=== PATIENT | female | born 1985 | race Caucasian/White ===

== ENCOUNTER 2020-05-31 19:43 | Emergency (ER) | payer OTHER ==
[2020-05-31] MEDS ORDERED: ONDANSETRON 4 MG/2 ML VIAL ONE (20:14)
[2020-05-31] MEDS ORDERED: NA CHLORIDE 0.9% 1,000 ML ONE (20:14)
[2020-05-31] MEDS ORDERED: FAMOTIDINE 20 MG/2 ML VIAL IV ONE (20:14)
[2020-05-31] MEDS ORDERED: MORPHINE 2 MG/ML SYR ONE ×2 (20:22→21:39)
[2020-05-31 20:43] LABS: Absolute Lymphocytes (CBC) 4.2 K/uL (0.7-4.9); Basophils % 1.8 % (0-1.3); Hematocrit 41.6 % (36.0-45.0); Lymphocytes % 29.5 % (15.3-44.8); MPV 8.4 fL (7.6-11.3); RBC Red Blood Cell Count 5.17 M/uL (3.86-4.86)
[2020-05-31 20:54] LABS: ALT/SGPT 26 U/L (12-78); AST/SGOT 18 U/L (15-37); Albumin 3.6 g/dL (3.4-5.0); Alkaline Phosphatase 88 U/L (45-117); BUN Blood Urea Nitrogen 13 mg/dL (7-18); Bicarbonate 24 mmol/L (21-32); Bilirubin Direct < 0.1 mg/dL (0-0.2); Bilirubin Total 0.3 mg/dL (0.2-1.0); Blood Morphology Comment NOT SEEN (NOT SEEN); Glucose Level 93 mg/dL (74-106); Lipase 151 U/L (73-393); Platelet Estimate INCR; Potassium 3.5 mmol/L (3.5-5.1); Protein, Total 8.4 g/dL (6.4-8.2); Sodium Level 145 mmol/L (136-145); Urine White Blood Cell Casts OK
--- NOTE | 2020-05-31 21:28 | RAD REPORT ---
EXAM DESCRIPTION: US - Abdomen Exam Limited - 05/31/2020 9:13 pm CLINICAL HISTORY: Abdominal pain. COMPARISON: December 2019 FINDINGS: Gallstones. The gallbladder wall is normal thickness The biliary tree is normal caliber. IMPRESSION: Cholelithiasis without evidence of cholecystitis
[2020-05-31 21:30] LABS: Urine Blood NEGATIVE (NEG); Urine Glucose NEGATIVE (NEG); Urine Protein NEGATIVE (NEG); Urine Specific Gravity 1.015 (1.005-1.030)
[2020-05-31] MEDS ORDERED: KETOROLAC 30 MG/ML INJ ONE (22:33)
--- NOTE | 2020-05-31 23:13 | EDPHYS ---
Physician Documentation [facility] Name: Mary Gillette Age: 34 yrs Sex: Female : 1985 Arrival Date: 05/31/2020 Time: 19:46 Bed 13 Private MD: ED Physician Donato Busby HPI: 05/31 20:05 This 34 yrs old Female presents to ER via Ambulatory with complaints of Back cp Pain, Nausea and Vomiting. 20:05 The patient presents with pain that is acute, with no known mechanism of injury. The cp symptoms are located in the mid back area. Onset: The symptoms/episode began/occurred 1 hour(s) ago. Associated signs and symptoms: Pertinent positives: abdominal pain, nausea, vomiting, Pertinent negatives: constipation, dysuria, fever, diarrhea. 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 - Social history:: Smoking status: Patient denies any tobacco usage or history of. Patient uses alcohol, only on a social basis. Patient/guardian denies using street drugs. ROS: 20:10 Back: Positive for pain at rest, pain with movement, of the mid back area. cp 20:10 Eyes: Negative for injury, pain, redness, and discharge. cp 20:10 Constitutional: Negative for body aches, chills, fever. 20:10 Respiratory: Negative for cough, shortness of breath, wheezing. 20:10 Abdomen/GI: Positive for abdominal pain, nausea and vomiting, Negative for diarrhea, constipation, hematemesis. 20:10 : Negative for urinary symptoms. 20:10 Neuro: Negative for altered mental status, headache, weakness. 20:10 All other systems are negative. Exam: 20:15 Constitutional: The patient appears in no acute distress, alert, awake, non-toxic, well cp developed, well nourished. 20:15 Head/Face: Normocephalic, atraumatic. cp 20:15 Eyes: Periorbital structures: appear normal, Conjunctiva: normal, no exudate, no injection, Sclera: no appreciated abnormality, Lids and lashes: appear normal, bilaterally. 20:15 ENT: External ear(s): are unremarkable, Nose: is normal, Mouth: Lips: moist, Oral mucosa: moist, Posterior pharynx: Airway: no evidence of obstruction, patent. 20:15 Chest/axilla: Inspection: normal, Palpation: is normal, no crepitus, no tenderness. 20:15 Cardiovascular: Rate: tachycardic, Rhythm: regular. 20:15 Respiratory: the patient does not display signs of respiratory distress, Respirations: normal, no use of accessory muscles, labored breathing, is not present, Breath sounds: are clear throughout, no decreased breath sounds, no stridor, no wheezing. 20:15 Abdomen/GI: Inspection: abdomen appears normal, Bowel sounds: active, all quadrants, Palpation: soft, in all quadrants, mild abdominal tenderness, in the right upper quadrant and left upper quadrant, voluntary guarding, is not appreciated, involuntary guarding, is not appreciated. 20:15 Back: pain, that is moderate, of the mid back area, ROM is normal. 20:15 Neuro: Orientation: to person, place \T\ time. Mentation: is normal, Motor: moves all fours, strength is normal. Vital Signs: 19:50 BP 158 / 100; Pulse 100; Resp 18; Temp 97.3; Pulse Ox 98% ; Pain 10/10; ll1 21:15 BP 135 / 93; Pulse 76; Resp 18; Pulse Ox 97% on R/A; Pain 5/10; wh 22:30 BP 142 / 97; Pulse 71; Resp 18; Pulse Ox 100% on R/A; Pain 4/10; wh 23:33 BP 136 / 92; Pulse 73; Resp 18 S; Pulse Ox 100% on R/A; bb MDM: 20:03 Patient medically screened. cp 23:10 Data reviewed: vital signs, nurses notes, lab test result(s), radiologic studies, CT cp scan, ultrasound, I have discussed the patient's presentation/case with the attending Emergency Department Physician; and as a result, I will discharge patient. 05/31 20:01 Order name: Basic Metabolic Panel; Complete Time: 20:54 cp 05/31 23:06 Interpretation: Normal except: CL 113; GFR 73. cp 05/31 20:01 Order name: CBC with Diff; Complete Time: 21:31 cp 05/31 20:54 Interpretation: Normal except: WBC 14.1; RBC 5.17; MCH 26.7; PLT 449; BASO% 1.8; NEUT A cp 8.5. 05/31 20:01 Order name: Hepatic Function; Complete Time: 20:54 cp 05/31 20:54 Interpretation: Normal except: TP 8.4; GLOB 4.8; A/G 0.8. cp 05/31 20:01 Order name: Lipase; Complete Time: 20:54 cp 05/31 20:55 Order name: CBC Smear Scan; Complete Time: 21:31 EDMS 05/31 21:15 Order name: Urine --Ancillary (enter results); Complete Time: 21:31 tt3 05/31 20:01 Order name: US Abdomen Limited: RUQ/epigastric area; Complete Time: 21:31 cp 05/31 21:31 Interpretation: Report reviewed. cp 05/31 20:55 Order name: CT Abd/Pelvis - IV Contrast Only cp 05/31 21:15 Order name: Urine Dipstick--Ancillary (enter results); Complete Time: 21:31 tt3 05/31 21:31 Interpretation: Normal except: UESTR TRACE. cp 05/31 20:01 Order name: IV Saline Lock; Complete Time: 20:08 cp 05/31 20:01 Order name: Labs collected and sent; Complete Time: 20:08 cp 05/31 20:01 Order name: Urine Dipstick-Ancillary (obtain specimen); Complete Time: 21:13 cp 05/31 20:01 Order name: Urine Test (obtain specimen); Complete Time: 21:13 cp 05/31 23:06 Order name: PO challenge; Complete Time: 23:19 cp Administered Medications: 20:04 Drug: NS 0.9% 1000 ml Route: IV; Rate: 1 bolus; Site: left forearm; 21:13 Follow up: Response: No adverse reaction; IV Status: Completed infusion 20:06 Drug: Pepcid 20 mg Route: IVP; Site: left forearm; wh 21:14 Follow up: Response: No adverse reaction 20:08 Drug: Zofran (Ondansetron) 4 mg Route: IVP; Site: left forearm; 21:14 Follow up: Response: No adverse reaction; Nausea is decreased 20:14 Drug: morphine 2 mg {Note: RASS 0.} Route: IVP; Site: left forearm; 21:14 Follow up: Response: No adverse reaction; Pain is decreased; RASS: Alert and Calm (0) 21:36 Drug: morphine 2 mg {Note: RASS 0.} Route: IVP; Site: left forearm; wh 22:51 Follow up: Response: No adverse reaction; Pain is decreased; RASS: Alert and Calm (0) 22:26 Drug: TORadol - Ketorolac 15 mg Route: IVP; Site: left forearm; 23:20 Follow up: Response: No adverse reaction jd3 Disposition: 06/01 07:21 Co-signature as Attending Physician, Donato Busby MD. 7 Disposition: 05/31/20 23:13 Discharged to Home. Impression: Cholelithiasis, Nausea and vomiting. - Condition is Stable. - Discharge Instructions: Biliary Colic, Adult, Nausea and Vomiting, Adult, Cholelithiasis. - Prescriptions for Bentyl 20 mg Oral Tablet - take 1 tablet by ORAL route every 6 hours As needed; 30 tablet. Zofran 4 mg Oral Tablet - take 1 tablet by ORAL route every 12 hours As needed; 20 tablet. - Medication Reconciliation Form, Thank You Letter, Antibiotic Education, Prescription Opioid Use form. - Follow up: Palmer Almonte MD; When: 2 - 3 days; Reason: gallstones. - Problem is new. - Symptoms have improved. Signatures: Dispatcher [employer] EDMS Raza Garcia PA PA cp Habalo, Winsy wh Davies, Jonathon, RN RN jd3 Robson Ortiz RN RN ll1 Donato Busby MD MD 7 Corrections: (The following items were deleted from the chart) 05/31 23:41 23:13 05/31/2020 23:13 Discharged to Home. Impression: Cholelithiasis; Nausea and jd3 vomiting. Condition is Stable. Forms are Medication Reconciliation Form, Thank You Letter, Antibiotic Education, Prescription Opioid Use. Follow up: Palmer Almonte; When: 2 - 3 days; Reason: gallstones. Problem is new. Symptoms have improved. cp 06/01 06:05 05/31 20:05 Onset: The symptoms/episode began/occurred 2 hour(s) ago, marleen hawley
--- NOTE | 2020-05-31 23:13 | ER ---
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 States she has ll1 been having ongoing abdominal issues since July. Had colonoscopy today. Coronavirus screen: Client denies travel out of the [place] in the last 14 days. At this time, the client does not indicate any symptoms associated with coronavirus-19. Ebola Screen: Patient denies travel to an Ebola-affected area in the 21 days before illness onset. Initial Sepsis Screen: Does the patient meet any 2 criteria? HR > 90 bpm. Risk Assessment: Do you want to hurt yourself or someone else? Patient reports no desire to harm self or others. Onset of symptoms was May 31, 2020. 19:50 Method Of Arrival: Ambulatory [facility] 19:50 Acuity: NISHA 3 ll1 20:32 Initial Sepsis Screen: Does the patient have a suspected source of infection? Yes: wh Acute abdominal pain. 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 - Social history:: Smoking status: Patient denies any tobacco usage or history of. Patient uses alcohol, only on a social basis. Patient/guardian denies using street drugs. Screenin:09 Abuse screen: Denies threats or abuse. Denies injuries from another. Nutritional wh screening: No deficits noted. Tuberculosis screening: No symptoms or risk factors identified. Fall Risk None identified. Assessment: 20:10 General: Appears uncomfortable, Behavior is cooperative, appropriate for age. Pain: wh Complains of pain in back Pain radiates to epigastric area and right upper quadrant Pain currently is 9 out of 10 on a pain scale. Quality of pain is described as stinging, Pain began 1 hour ago. Is intermittent. Neuro: Level of Consciousness is awake, alert, obeys commands, Oriented to person, place, time, situation, Appropriate for age. Cardiovascular: Heart tones S1 S2. Respiratory: Airway is patent Respiratory effort is even, unlabored, Respiratory pattern is regular, symmetrical, Breath sounds are clear bilaterally. GI: Abdomen is round non-distended, Abd is soft Reports upper abdominal pain, nausea, vomiting. : No signs and/or symptoms were reported regarding the genitourinary system. EENT: No signs and/or symptoms were reported regarding the EENT system. Derm: Skin is intact, is healthy with good turgor, Skin is pink, warm \T\ dry. normal. Musculoskeletal: Circulation, motion, and sensation intact. 21:20 Reassessment: No changes from previously documented assessment. Patient and/or family wh updated on plan of care and expected duration. Pain level reassessed. Patient is alert, oriented x 3, equal unlabored respirations, skin warm/dry/pink. 22:37 Reassessment: Patient and/or family updated on plan of care and expected duration. Pain wh level reassessed. Patient is alert, oriented x 3, equal unlabored respirations, skin warm/dry/pink. 23:33 Reassessment: Patient appears in no apparent distress at this time. Patient and/or bb family updated on plan of care and expected duration. Pain level reassessed. Patient is alert, oriented x 3, equal unlabored respirations, skin warm/dry/pink. Patient states feeling better. Vital Signs: 19:50 BP 158 / 100; Pulse 100; Resp 18; Temp 97.3; Pulse Ox 98% ; Pain 10/10; ll1 21:15 BP 135 / 93; Pulse 76; Resp 18; Pulse Ox 97% on R/A; Pain 5/10; wh 22:30 BP 142 / 97; Pulse 71; Resp 18; Pulse Ox 100% on R/A; Pain 4/10; wh 23:33 BP 136 / 92; Pulse 73; Resp 18 S; Pulse Ox 100% on R/A; bb ED Course: 19:46 Patient arrived in ED. bp1 19:51 Donato Busby MD is Attending Physician. mh7 19:53 Triage completed. ll1 19:53 Arm band placed on Patient placed in an exam room, on a stretcher. ll1 19:56 Raza Garcia PA is PHCP. cp 20:02 Habalo, Winsy is Primary Nurse. wh 20:30 Inserted saline lock: 20 gauge in left forearm, using aseptic technique. Blood wh collected. By Ismael Navarrete RN. 21:00 Patient has correct armband on for positive identification. Placed in gown. Bed in low wh position. Call light in reach. Side rails up X 1. Pulse ox on. NIBP on. 21:08 Radiology exam delayed due to test not completed at this time. vm2 21:14 US Abdomen Limited: RUQ/epigastric area In Process Unspecified. EDMS 21:50 CT Abd/Pelvis - IV Contrast Only In Process Unspecified. EDMS 23:12 Palmer Almonte MD is Referral Physician. cp 23:33 No provider procedures requiring assistance completed. IV discontinued, intact, bb bleeding controlled, No redness/swelling at site. Pressure dressing applied. Administered Medications: 20:04 Drug: NS 0.9% 1000 ml Route: IV; Rate: 1 bolus; Site: left forearm; 21:13 Follow up: Response: No adverse reaction; IV Status: Completed infusion 20:06 Drug: Pepcid 20 mg Route: IVP; Site: left forearm; wh 21:14 Follow up: Response: No adverse reaction 20:08 Drug: Zofran (Ondansetron) 4 mg Route: IVP; Site: left forearm; wh 21:14 Follow up: Response: No adverse reaction; Nausea is decreased wh 20:14 Drug: morphine 2 mg {Note: RASS 0.} Route: IVP; Site: left forearm; 21:14 Follow up: Response: No adverse reaction; Pain is decreased; RASS: Alert and Calm (0) 21:36 Drug: morphine 2 mg {Note: RASS 0.} Route: IVP; Site: left forearm; wh 22:51 Follow up: Response: No adverse reaction; Pain is decreased; RASS: Alert and Calm (0) 22:26 Drug: TORadol - Ketorolac 15 mg Route: IVP; Site: left forearm; 23:20 Follow up: Response: No adverse reaction jd3 Outcome: 23:13 Discharge ordered by . cp 23:33 Condition: stable bb 23:33 Discharge instructions given to patient, Instructed on discharge instructions, follow up and referral plans. medication usage, Demonstrated understanding of instructions, follow-up care, medications, Prescriptions given X 2. 23:41 Discharged to home ambulatory, with family. jd3 23:41 Patient left the ED. jd3 Signatures: Dispatcher [employer] EDSimin Foster RN RN Raza Pennington PA PA cp McGuire, Victoria 2 Chip, Iva Butler, SHIELA Horton RN jd3 Robson Ortiz RN RN ll1 Gayatri Medina Maurice, MD MD mh7 Corrections: (The following items were deleted from the chart) 22:48 22:30 BP 142 / 97; Pulse 71bpm; Resp 18bpm; Pulse Ox 100% RA; [facility] 22:48 21:15 BP 135 / 93; Pulse 76bpm; Resp 18bpm; Pulse Ox 97% RA; [facility]
--- NOTE | 2020-06-01 14:48 | RAD REPORT ---
EXAM DESCRIPTION: CT - Abdomen Pelvis W Contrast - 06/01/2020 5:12 am CLINICAL HISTORY: The patient is 34 years old and is Female; NAUSEA / VOMITING TECHNIQUE: Axial computed tomography images of the abdomen and pelvis with intravenous contrast. S agittal and coronal reformatted images were created and reviewed. This CT exam was performed using one or more of the following dose reduction techniques: automated exposure control, adjustment of t he mA and/or kV according to patient size, and/or use of iterative reconstruction technique. DLP: 1277 mGy*cm COMPARISON: None. FINDINGS: LUNG BASES: Lung bases are clear. HEART: Visualized heart is normal. ABDOMEN: LIVER: Mild hepatic steatosis. GALLBLADDER AND BILE DUCTS: Suggestion of cholelithiasis without CT evidence of acute cholecystiti s. No ductal dilation. PANCREAS: Unremarkable. No mass. No ductal dilation. SPLEEN: Multifocal splenic rounded hypodensities measuring up to 4.1 x 3.2 cm. ADRENALS: Unremarkable. No mass. KIDNEYS AND URETERS: Unremarkable. No solid mass. No hydronephrosis. STOMACH AND BOWEL: Linear metallic foreign body in the descending colon (series 401, image 44). No obstruction. No mucosal thickening. PELVIS: APPENDIX: The appendix is seen and is within normal limits. BLADDER: Bladder is decompressed. REPRODUCTIVE: Unremarkable as visualized. ABDOMEN and PELVIS: INTRAPERITONEAL SPACE: Unremarkable. No free air. No significant fluid collection. BONES/JOINTS: No acute fracture. No dislocation. SOFT TISSUES: Small fat-containing of vertical hernia. VASCULATURE: Unremarkable. No abdominal aortic aneurysm. LYMPH NODES: Unremarkable. No enlarged lymph nodes. IMPRESSION: 1. No acute abdominal or pelvic abnormality. 2. Linear metallic foreign body in the descending colon (series 401, image 44). 3. Suggestion of cholelithiasis without CT evidence of acute cholecystitis. Right upper quadrant ultrasound is recommended. 4. Mild hepatic steatosis. 5. Multifocal simple-appearing splenic cystic lesion measuring up to 4.1 cm with mild mural calcifi cation. Abdominal ultrasound is recommended. Electronically signed by: Severo Majano DO 05/31/2020 9:57 PM CDT Due to temporary technical issues with the PACS/Fluency reporting system, reports are being signed by the in house radiologist without review as a courtesy to ensure prompt reporting. The interpreting r adiologist is fully responsible for the content of the report.
== END 2020-05-31 23:41 | disposition home or self-care (01) ==
LOC: ER 19:43
DX: K80.20 Calculus of gallbladder without cholecystitis without obstruction (principal); Z88.0 Allergy status to penicillin; Z91.040 Latex allergy status; Z91.048 Other nonmedicinal substance allergy status
CPT/HCPCS: 96361; 85025; 80048; 36415; 81025; 80076; 81003; 83690; 74177; 76705; 96375; 96374; 99284; Q9967; J2270 ×2; J7030; J2405

== ENCOUNTER 2020-06-04 23:01 | Inpatient (IN) | payer OTHER ==
--- NOTE | 2020-06-04 23:31 | EDPHYS ---
Physician Documentation [facility] Name: Mary Gillette Age: 34 yrs Sex: Female : 1985 Arrival Date: 06/04/2020 Time: 23:02 Bed 16 Private MD: ED Physician Donato Busby HPI: 06/04 23:37 This 34 yrs old Female presents to ER via Ambulatory with complaints of kb gallbladder pain. 23:37 The patient presents with abdominal pain in the right upper quadrant. Onset: The kb symptoms/episode began/occurred today. The symptoms do not radiate. Associated signs and symptoms: none. The symptoms are described as intermittent. Modifying factors: The symptoms are alleviated by nothing, the symptoms are aggravated by nothing. Severity of pain: At its worst the pain was moderate in the emergency department the pain has resolved. The patient has experienced similar episodes in the past. The patient has been recently seen by a physician:. Pt reports she is scheduled for her gallbladder to be removed at [address] Almonte. States she has a little pain a few hours ago and was worried that she would have a full gallbladder attack so she came in to get ahead of it. States "now that I'm here I don't have any pain, but I wouldn't be able to take it if it came back." . 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 - Social history:: Smoking status: Patient denies any tobacco usage or history of. ROS: 23:36 Constitutional: Negative for fever, chills, and weight loss, Cardiovascular: Negative kb for chest pain, palpitations, and edema, Respiratory: Negative for shortness of breath, cough, wheezing, and pleuritic chest pain, Back: Negative for injury and pain, : Negative for injury, bleeding, discharge, and swelling, MS/Extremity: Negative for injury and deformity, Skin: Negative for injury, rash, and discoloration, Neuro: Negative for headache, weakness, numbness, tingling, and seizure. 23:36 Abdomen/GI: Positive for abdominal pain, Negative for nausea, vomiting, and diarrhea. Exam: 23:36 Constitutional: This is a well developed, well nourished patient who is awake, alert, kb and in no acute distress. Head/Face: Normocephalic, atraumatic. Chest/axilla: Normal chest wall appearance and motion. Nontender with no deformity. No lesions are appreciated. Cardiovascular: Regular rate and rhythm with a normal S1 and S2. No gallops, murmurs, or rubs. Normal PMI, no JVD. No pulse deficits. Respiratory: Lungs have equal breath sounds bilaterally, clear to auscultation and percussion. No rales, rhonchi or wheezes noted. No increased work of breathing, no retractions or nasal flaring. Abdomen/GI: Soft, non-tender, with normal bowel sounds. No distension or tympany. No guarding or rebound. No evidence of tenderness throughout. Skin: Warm, dry with normal turgor. Normal color with no rashes, no lesions, and no evidence of cellulitis. MS/ Extremity: Pulses equal, no cyanosis. Neurovascular intact. Full, normal range of motion. Neuro: Awake and alert, GCS 15, oriented to person, place, time, and situation. Cranial nerves II-XII grossly intact. Motor strength 5/5 in all extremities. Sensory grossly intact. Cerebellar exam normal. Normal gait. Vital Signs: 23:25 BP 132 / 91; Pulse 83; Resp 18; Temp 98(O); Pulse Ox 100% on R/A; Weight 92.99 kg (R); lp1 Height 5 ft. 3 in. (160.02 cm); Pain 3/10; 23:54 BP 116 / 93; Pulse 81; Resp 18; Pulse Ox 99% ; vc 06/05 00:33 BP 106 / 68; Pulse 74; Resp 16; Pulse Ox 99% on R/A; vc 06/04 23:25 Body Mass Index 36.31 (92.99 kg, 160.02 cm) lp1 MDM: 06/04 23:07 Patient medically screened. kb 23:29 Data reviewed: vital signs, nurses notes. Data interpreted: Pulse oximetry: on room air kb is 100 %. Interpretation: normal. Counseling: I had a detailed discussion with the patient and/or guardian regarding: the historical points, exam findings, and any diagnostic results supporting the discharge/admit diagnosis, the need for further work-up and treatment in the hospital. Physician consultation: Palmer Almonte MD was contacted at 23:29, regarding consult, patient's condition, and will see patient in inpatient room. 23:46 ED course: Dr Almonte recommended admission until scheduled procedure in the morning kb to manage pain. 06/04 23:07 Order name: Basic Metabolic Panel kb 06/04 23:07 Order name: CBC with Diff kb 06/04 23:07 Order name: Hepatic Function kb 06/04 23:07 Order name: Lipase kb 06/04 23:07 Order name: IV Saline Lock; Complete Time: 23:51 kb Administered Medications: 23:50 Drug: NS 0.9% 1000 ml Route: IV; Rate: 1000 ml; Site: left antecubital; vc 06/05 00:47 Follow up: IV Status: Infusion continued upon admission vc 06/04 23:50 Drug: Cipro 400 mg Volume: 200 ml; Route: IVPB; Infused Over: 60 mins; Site: left vc antecubital; 06/05 00:47 Follow up: IV Status: Completed infusion; IV Intake: 200ml vc 00:04 Drug: morphine 4 mg {Note: RASS 0.} Route: IVP; Site: left antecubital; vc 00:45 Follow up: Response: No adverse reaction; Pain is decreased vc 00:05 Drug: Zofran (Ondansetron) 4 mg Route: IVP; Site: left antecubital; vc 00:45 Follow up: Response: No adverse reaction vc Disposition: 01:27 Co-signature as Attending Physician, Donato Busby MD. mh7 Disposition: 06/04/20 23:31 Hospitalization ordered by Palmer Almonte for Observation. Preliminary diagnosis is Cholelithiasis. - Bed requested for Telemetry/MedSurg (observation). - Status is Observation. vc - Condition is Stable. - Problem is new. - Symptoms are unchanged. Signatures: Dispatcher [employer] EDMS Silvana Gonzalez, MILLER-C MILLER-Kezia Stout, RN RN lp1 Ann Fox, RN RN cg Viviana Hand RN RN vc Donato Busby MD MD mh7 Corrections: (The following items were deleted from the chart) 06/04 23:39 23:31 Hospitalization Ordered by Palmer Almonte MD for Observation. Preliminary cg diagnosis is Cholelithiasis. Bed requested for Telemetry/MedSurg (observation). Status is Observation. Condition is Stable. Problem is new. Symptoms are unchanged. kb 23:46 23:37 Pt reports she is scheduled for her gallbladder to be removed at 0900 tomorrow by marguerite Almonte. States . kb 23:51 23:07 Labs collected and sent ordered. marguerite vc 06/05 00:46 06/04 23:39 06/04/2020 23:31 Hospitalization Ordered by Palmer Almonte MD for vc Observation. Preliminary diagnosis is Cholelithiasis. Bed requested for Telemetry/MedSurg (observation). Status is Observation. Condition is Stable. Problem is new. Symptoms are unchanged. cg
--- NOTE | 2020-06-04 23:31 | ER ---
Nurse's Notes [facility] Name: Mary Gillette Age: 34 yrs Sex: Female : 1985 Arrival Date: 06/04/2020 Time: 23:02 Bed 16 Private MD: Diagnosis: Cholelithiasis Presentation: 06/04 23:25 Chief complaint: Patient states: Gallbladder pain, states episode began about 1800 lp1 tonight; Patient states scheduled to have lap renea tomorrow by Dr. Almonte at 0900. Coronavirus screen: Client denies travel out of the [place] in the last 14 days. At this time, the client does not indicate any symptoms associated with coronavirus-19. Ebola Screen: No symptoms or risks identified at this time. Initial Sepsis Screen: Does the patient meet any 2 criteria? No. Patient's initial sepsis screen is negative. Does the patient have a suspected source of infection? No. Patient's initial sepsis screen is negative. Risk Assessment: Do you want to hurt yourself or someone else? Patient reports no desire to harm self or others. Onset of symptoms was June 04, 2020 at 18:00. 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 - Social history:: Smoking status: Patient denies any tobacco usage or history of. Screenin:30 Abuse screen: Denies threats or abuse. Denies injuries from another. Nutritional lp1 screening: No deficits noted. Tuberculosis screening: No symptoms or risk factors identified. Fall Risk None identified. Assessment: 23:35 General: Appears in no apparent distress. comfortable, Behavior is calm, cooperative, vc appropriate for age. Pain: Complains of pain in epigastric area, right upper quadrant, left upper quadrant, right lower quadrant and left lower quadrant Pain does not radiate. Pain currently is 7 out of 10 on a pain scale. Quality of pain is described as sharp. Neuro: Level of Consciousness is awake, alert, obeys commands, Oriented to person, place, time, situation, Appropriate for age. Cardiovascular: Capillary refill < 3 seconds Patient's skin is warm and dry. Respiratory: Airway is patent Respiratory effort is even, unlabored, Respiratory pattern is regular, symmetrical. GI: Reports lower abdominal pain, upper abdominal pain. : No signs and/or symptoms were reported regarding the genitourinary system. Derm: Skin is intact, is healthy with good turgor, Skin temperature is warm. 06/05 00:33 Reassessment: Patient appears in no apparent distress at this time. Patient and/or vc family updated on plan of care and expected duration. Pain level reassessed. Patient is alert, oriented x 3, equal unlabored respirations, skin warm/dry/pink. Patient states feeling better. Patient states symptoms have improved. Vital Signs: 06/04 23:25 BP 132 / 91; Pulse 83; Resp 18; Temp 98(O); Pulse Ox 100% on R/A; Weight 92.99 kg (R); lp1 Height 5 ft. 3 in. (160.02 cm); Pain 3/10; 23:54 BP 116 / 93; Pulse 81; Resp 18; Pulse Ox 99% ; vc 06/05 00:33 BP 106 / 68; Pulse 74; Resp 16; Pulse Ox 99% on R/A; vc 06/04 23:25 Body Mass Index 36.31 (92.99 kg, 160.02 cm) lp1 ED Course: 06/04 23:02 Patient arrived in ED. am2 23:04 Silvana Gonzalez FNP-C [facility]. kb 23:04 Donato Busby MD is Attending Physician. kb 23:26 Viviana Hand, SHIELA is Primary Nurse. vc 23:27 Triage completed. lp1 23:27 Arm band placed on. lp1 23:30 Patient has correct armband on for positive identification. vc 23:31 Palmer Almonte MD is Hospitalizing Provider. kb 06/05 00:45 No provider procedures requiring assistance completed. Patient admitted, IV remains in vc place. Administered Medications: 06/04 23:50 Drug: NS 0.9% 1000 ml Route: IV; Rate: 1000 ml; Site: left antecubital; vc 06/05 00:47 Follow up: IV Status: Infusion continued upon admission vc 06/04 23:50 Drug: Cipro 400 mg Volume: 200 ml; Route: IVPB; Infused Over: 60 mins; Site: left vc antecubital; 06/05 00:47 Follow up: IV Status: Completed infusion; IV Intake: 200ml vc 00:04 Drug: morphine 4 mg {Note: RASS 0.} Route: IVP; Site: left antecubital; vc 00:45 Follow up: Response: No adverse reaction; Pain is decreased vc 00:05 Drug: Zofran (Ondansetron) 4 mg Route: IVP; Site: left antecubital; vc 00:45 Follow up: Response: No adverse reaction vc Intake: 00:47 IV: 200ml; Total: 200ml. vc Outcome: 06/04 23:31 Decision to Hospitalize by Provider. kb 06/05 00:46 Admitted to Med/surg accompanied by nurse, via wheelchair, room 206, with chart, Report vc called to SHIELA Shook Condition: good 00:46 Patient left the ED. vc Signatures: Silvana Gonzalez, FILTER MACHINE OPERATOR-C FILTER MACHINE OPERATOR-Ckb Kezia Ashley RN RN delonte1 Lolly Alberto Vanessa, RN RN vc
[2020-06-04] MEDS ORDERED: NA CHLORIDE 0.9% 1,000 ML ONE (23:49)
[2020-06-04] MEDS ORDERED: CIPROFLOXACIN 400mg IV 400 MG/200 ML BAG IV ONE (23:49)
[2020-06-05] MEDS ORDERED: ONDANSETRON 4 MG/2 ML VIAL ONE ×2 (00:08→11:02)
[2020-06-05] MEDS ORDERED: MORPHINE 4 MG/ML SYR ONE (00:08)
[2020-06-05] MEDS ORDERED: ONDANSETRON 4 MG/2 ML VIAL IV PRN (00:47)
[2020-06-05] MEDS: NA CHLORIDE 0.9% 1,000 ML IV SCH ×5 (00:47→20:21)
[2020-06-05] MEDS ORDERED: PIPER/TAZO/NS 3.375gm 3.375 GM/100 ML BAG IVPB SCH (01:00)
[2020-06-05 01:31] VITALS: BMI 35.6
[2020-06-05] MEDS: MORPHINE 4 MG/ML SYR IV PRN ×2 (04:51→23:06)
[2020-06-05] MEDS: CIPROFLOXACIN 400mg IV 400 MG/200 ML BAG IV SCH ×2 (08:27→20:20)
[2020-06-05 08:57] LABS: Absolute Lymphocytes (CBC) 3.1 K/uL (0.7-4.9); Basophils % 0.4 % (0-1.3); Hematocrit 37.3 % (36.0-45.0); Lymphocytes % 35.2 % (15.3-44.8); MPV 7.7 fL (7.6-11.3); RBC Red Blood Cell Count 4.62 M/uL (3.86-4.86)
[2020-06-05 09:15] LABS: Bilirubin Direct 0.1 mg/dL (0-0.2); Bilirubin Total 0.3 mg/dL (0.2-1.0); Potassium 3.9 mmol/L (3.5-5.1); Protein, Total 7.1 g/dL (6.4-8.2)
[2020-06-05] MEDS ORDERED: MIDAZOLAM HCL 2 MG/2 ML INJ ONE ×2 (10:22→10:32)
[2020-06-05] MEDS ORDERED: LIDOCAINE 1% MPF 5 ML VIAL ONE (10:32)
[2020-06-05] MEDS ORDERED: FENTANYL CITR 100 MCG/2 ML ONE ×2 (10:32→11:04)
[2020-06-05] MEDS ORDERED: propofoL 200 MG/20 ML VIAL IV ONE (10:32)
[2020-06-05] MEDS ORDERED: ROCURONIUM 50 MG/5 ML VIAL IV ONE (10:32)
[2020-06-05] MEDS ORDERED: dexAMETHasone 10 MG/ML VIAL ONE (10:55)
[2020-06-05] MEDS ORDERED: KETOROLAC 30 MG/ML INJ ONE (10:55)
[2020-06-05] MEDS ORDERED: NEOSTIGMINE 1 MG/ML -5 ML ONE (11:03)
[2020-06-05] MEDS ORDERED: GLYCOPYRROLATE 0.2 MG/ML SYR ONE (11:03)
--- NOTE | 2020-06-05 11:14 | P.BOP ---
Preoperative diagnosis: acute cholecystitis, sympt cholelithiasis, umbilical hernia, FB left colon Postoperative diagnosis: same Primary procedure: 1. Laparoscopic cholecystectomy Secondary procedure: 2. open repair of incarcerated umbilical hernia Allergy Specialist: Phylicia Del Toro) Estimated blood loss: <10cc Specimen: hernia sac, GB Anesthesia: General Complications: None Transferred to: Recovery Room Condition: Good
[2020-06-05] MEDS ORDERED: HYDROCODONE/APAP 5/325 MG TAB PO PRN (11:19)
[2020-06-05] MEDS ORDERED: Mastisol Adhesive Liq ONE (11:29)
--- NOTE | 2020-06-05 20:36 | HP ---
Date of Admission: 06/04/2020 History Of Present Illness: This is a case of a 30-year-old patient known by us seen today. She is supposed to have a cholecystectomy done due to acute cholecystitis and symptomatic cholelithiasis. O vernight, the pain got worse. So, she decided to come to the ER and then she was admitted to the [facility] for intractable abdominal pain, sometimes get better, sometimes get worse and she did not want to go home and come few hours later since she was still having pain. So, she was admitted to the [facility] and then continued with the plan of cholecystectomy. She states that happened after dinner and little bit just before dinner too. She denies any dysuria, hematuria, hematochezia, melena. Denies any recent traveling out of the country. Denies any family member sick at home. Medications: Reviewed. See my H and P right there in the chart at this moment for details. Allergies: PENICILLIN AND LATEX. Social History: She smokes occasionally. Drinks occasional alcohol. She was counseled on smoking c essation. Family History: Noncontributory. Surgical History: See my H and P. Including also meniscus repair. Physical Examination: General: The patient is awake, alert. HEENT: Pupils are equal and reactive. Anicteric. Neck: Supple. Chest: Clear. Abdomen: Epigastric right upper quadrant tenderness with Mills sign positive. Extremities: Good capillary refill. Rectal: Deferred. Breasts: Deferred. Pelvic: Deferred. Neuro: Oriented x3. Laboratory Data: Blood work shows WBC count of 8.7 with hemoglobin of 12.4. AST 79, ALT 86, total b ilirubin of 0.3, alkaline phosphatase of 160. Serum negative. Lipase 81. Ultrasound of t he abdomen shows cholelithiasis with biliary tree in the normal caliber. CAT scan of abdomen and pel vis shows some splenic lesion. She states [facility]. They sta te it is not a cancer, it is just a cyst. They are following up on that. They claim about a linear metallic area on the colon region, cannot tell exactly what that could be. The patient also has umbi lical hernia. Assessment: Acute cholecystitis, symptomatic cholelithiasis, umbilical hernia, also it could be a fo reign body in the area of the colon. We have different issues to deal also with the spleen, but some one is dealing with that already and the area of the gallbladder is to the point that she comes this morning with abdominal pain again, so this has to be addressed. The area of the foreign b shefali will have to be addressed if that continue with the help of a colonoscopy eventually once this ac luciano episode gets relief. Once again, benefits, alternatives, and risks including, but not limited to infection, bleeding, damage to adjacent structures, anesthesia complication, choledocholithiasis, bi le leak, pancreatitis, GA, and even . KRISTIN/RUY Voice ID: [id number]
--- NOTE | 2020-06-05 21:42 | OP ---
Date of Procedure: 06/05/2020 Surgeon: Palmer Almonte MD Preoperative Diagnoses: Abdominal pain right upper quadrant, acute cholecystitis, symptomatic cholel ithiasis, umbilical hernia, foreign body in the left colon. Postoperative Diagnoses: Abdominal pain right upper quadrant, acute cholecystitis, symptomatic renea lithiasis, umbilical hernia, foreign body in the left colon. Procedure: 1.Laparoscopic cholecystectomy. 2.Open repair of incarcerated umbilical hernia. Specimen: Hernia sac and gallbladder. Anesthesia: General plus local. History: This is a case of a 34-year-old patient with multiple problems. She has been seeing the GI doctor for abdominal pain, had a colonoscopy and endoscopy done recently. She also has a CT scan th at shows a little metallic area on the descending colon, but apparently the colonoscopy has not been able to find it, but then she comes with something different. She comes with epigastric right upper quadrant pain with Mills sign positive. She scheduled today for surgery. She could not wait until this morning. She has to come overnight to the ER due to epigastric pain and right upper quadrant pa in. Diagnosed with acute cholecystitis. She also has an incarcerated umbilical hernia, so laparosco pic possible cholecystectomy with umbilical hernia repair fully explained to the patient which includ e, but not limited to infection, bleeding, damage to adjacent structures, anesthesia complication, ch oledocholithiasis, bile leak, pancreatitis, recurrence, VT and even . She also understands this may not relieve any symptoms. She might need more than one surgical intervention. She understood, signed a consent. She was once again referred back to the GI doctor to trying to figure out the find ings on the CAT scan and descending colon. Although right now seems to be a separate incident. She has also seen her a oncologist for the splenic lesions, although they are not doing much about it and they do not think it is anything of concern. Description Of Procedure: The patient was brought to the operating room, placed in supine position. Anesthesia was done without complication. Abdominal area was prepped and draped in sterile fashion. Local anesthesia was applied followed by sharp incision of the skin in the periumbilical region. H ernia sac was opened. Omentum that was incarcerated there was released from adhesions and reduced ba ck into the abdominal cavity. Hernia sac was removed. The fascial edges were cleaned. We placed Vi cryl #1 inside the fascia. Anat trocar was carefully introduced. No bleeding was obtained. We pl aced 35 mm trocars 3 of them in the right upper quadrant epigastric area under direct visualization. This allowed me to visualize the area of the gallbladder. This gallbladder contrary of the ultrasou nd findings shows a thickening gallbladder with very distended gallbladder. So per the physical find ings of acute cholecystitis. We look at the area of the descending colon, although the camera was no t assigned for that area, but I do not see any inflammation of the descending colon and the reason we look at that area is because of the findings on the CAT scan. I do not see any extraluminal mass in that region. So, we concentrated in the area of the gallbladder once again. In order for me to man age this, I have to deflate the gallbladder with the endo needle under direct visualization. After t hat, I placed a grasper in the fundus of the gallbladder, another grasper in the infundibulum, retrac catia the gallbladder in the inferolateral fashion exposing the triangle of Calot and obtaining critica l view. The cystic duct and cystic artery were clearly isolated free circumferentially and connectio n between those and the gallbladder was clearly identified. I proceeded to ligate those by using at least 3 clips proximal, 1 clip distal, ligation in middle. Same was done with the cystic artery. No bile leak, no bleeding. The gallbladder was removed from liver using Bovie cauterizer and removed f rom abdominal cavity using EndoCatch through the umbilical incision. The area was inspected once aga in, no bile leak, no bleeding. Clips were intact. At that moment, I proceeded to remove the trocars under direct vision. Deflated the pneumoperitoneum. Closed the fascia with #1 Vicryl. Irrigated s ubcutaneous tissue, closed with 3-0 chromic and the skin with 3-0 chromic in a subcuticular fashion. Sponge count, instrument counts were correct. The patient tolerated the procedure well. The patient was sent to Recovery is in stab le condition. KRISTIN/MARLAL Voice ID: [id number] Report ID: [id number]
[2020-06-06] MEDS: NA CHLORIDE 0.9% 1,000 ML IV SCH ×2 (00:47→08:47)
[2020-06-06 07:50] VITALS: O2SAT 98
[2020-06-06] MEDS: CIPROFLOXACIN 400mg IV 400 MG/200 ML BAG IV SCH (08:14)
--- NOTE | 2020-06-06 12:03 | P.DS ---
Admission Date: 06/06/20 Discharge Date: 06/06/20 Disposition: ROUTINE DISCHARGE Discharge Condition: GOOD Vital Signs/Physical Exam: Temp Pulse Resp BP Pulse Ox 98.2 F 85 16 144/79 H 97 06/06/20 08:00 06/06/20 08:00 06/06/20 08:00 06/06/20 08:00 06/06/20 08:00 General: Alert, In no apparent distress, Oriented x3, Cooperative HEENT: PERRLA Neck: Supple Respiratory: Normal air movement Gastrointestinal: Soft and benign Musculoskeletal: No erythema, No tenderness, No warmth Integumentary: No rashes, No breakdown Neurological: Normal speech Laboratory Data at Discharge: WBC 8.7 K/uL (4.3-10.9) D 06/05/20 08:42 Hgb 12.4 g/dL (12.0-15.0) 06/05/20 08:42 Hct 37.3 % (36.0-45.0) 06/05/20 08:42 Plt Count 389 K/uL (152-406) 06/05/20 08:42 Sodium 142 mmol/L (136-145) 06/05/20 08:42 Potassium 3.9 mmol/L (3.5-5.1) 06/05/20 08:42 BUN 6 mg/dL (7-18) L 06/05/20 08:42 Creatinine 0.78 mg/dL (0.55-1.3) 06/05/20 08:42 Glucose 91 mg/dL (74-106) 06/05/20 08:42 Total Bilirubin 0.3 mg/dL (0.2-1.0) 06/05/20 08:42 AST 79 U/L (15-37) H 06/05/20 08:42 ALT 86 U/L (12-78) H 06/05/20 08:42 Alkaline Phosphatase 116 U/L (45-117) 06/05/20 08:42 Amylase 22 U/L (25-115) L 06/05/20 08:42 Lipase 81 U/L (73-393) 06/05/20 08:42 Home Medications: Dicyclomine HCl 20 mg PO DAILY PRN 06/04/20 Norethindrone-E.estradiol-Iron [Microgestin Fe 1.5-30 Tab] 1 each PO BEDTIME 06/04/20 Omeprazole 20 mg PO DAILY 06/04/20 Ondansetron [Zofran] 4 mg PO Q6H PRN 06/04/20 Quetiapine [Seroquel] 100 mg PO BEDTIME 06/04/20 Ciprofloxacin HCl [Cipro 500 MG Tablet] 500 mg PO BID #10 tab 06/06/20 Codeine/APAP [Tylenol W/Codeine #3 tab] 1 tab PO Q4HP PRN #30 tab 06/06/20 New Medications: Ciprofloxacin HCl [Cipro 500 MG Tablet] 500 mg PO BID #10 tab Codeine/APAP [Tylenol W/Codeine #3 tab] 1 tab PO Q4HP PRN #30 tab PRN Reason: Pain Patient Discharge Instructions: KEep area dry for 48h then may shower. Keep sterile strips intact. Diet: AHA Activity: No lifting more than 10 lbs Followup: Palmer Almonte MD [Primary Care Provider] - 1 Week
[2020-06-06 12:31] VITALS: BP 114/70; TEMP 97.5
== END 2020-06-06 12:58 | disposition home or self-care (01) | DRG 419 ==
LOC: ER 23:01 → ERHOLD 23:31 → 2ND 06-05 00:33 → OBSVTOIN 06-06 08:09
PROVIDERS: ADMIT Surgery; ATTEND Surgery
PROC: 0FT44ZZ Resection of Gallbladder, Percutaneous Endoscopic Approach (ICD-10-PCS; principal; 2020-06-06)
PROC: 0WQF0ZZ Repair Abdominal Wall, Open Approach (ICD-10-PCS; 2020-06-06)
DX: K80.00 Calculus of gallbladder with acute cholecystitis without obstruction (principal); K42.9 Umbilical hernia without obstruction or gangrene; F17.210 Nicotine dependence, cigarettes, uncomplicated; K21.9 Gastro-esophageal reflux disease without esophagitis; Z71.6 Tobacco abuse counseling; Z91.040 Latex allergy status; Z88.0 Allergy status to penicillin
CPT/HCPCS: 36415; 80048; 80076; 82150; 83690; 84703; 85025; 88302; 88304; 96365; 96375; 99285; G0378; J0744; J1100; J2250; J2405; J2704; J2710; J3010; J7030; U0003